=== PATIENT | male | born 1960 | race Two or more races ===

== ENCOUNTER 2021-06-28 22:00 | Emergency (ER) | payer SELFPAY ==
[~2021-06-28] VITALS: Ht 165.1 cm; Wt 65.3 kg
[2021-06-28 23:00] LABS: BASOPHILS % (AUTO) 1 % (0-1); EOSINOPHILS % (AUTO) 3 % (1-7); LYMPHOCYTES % (AUTO) 25 % (22-44); MEAN CORPUSCULAR HEMOGLOBIN 29.7 pg (27.5-34.5); MEAN CORPUSCULAR HGB CONC 34.2 g/dL (33.2-36.2); MEAN PLATELET VOLUME 7.4 fL (7.4-10.4); MONOCYTES % (AUTO) 10 % (2-9); NEUTROPHILS % (AUTO) 61 % (42-75); PLATELET COUNT 233 x10^3/uL (130-400); RED BLOOD COUNT 5.22 x10^6/uL (4.38-5.82); RED CELL DISTRIBUTION WIDTH 13.9 % (9.4-14.8)
[2021-06-28 23:10] LABS: CHLORIDE 105 mmol/L (98-107)
[2021-06-28 23:11] LABS: ALANINE AMINOTRANSFERASE 27 U/L (12-78); ALBUMIN 3.7 g/dL (3.4-5.0); ANION GAP 4 mmol/L (5-15); CALCIUM 9.3 mg/dL (8.5-10.1); CREATININE 0.89 mg/dL (0.7-1.3)
[2021-06-28 23:15] LABS: ALKALINE PHOSPHATASE 94 U/L (45-117); BILIRUBIN,TOTAL 0.5 mg/dL (0.2-1.0); TROPONIN I < 0.015 ng/mL (0.000-0.045)
--- NOTE | 2021-06-29 00:06 | NUR ---
UA COLLECTED AND SENT
[2021-06-29 00:12] LABS: MICROSCOPIC NOT IND
--- NOTE | 2021-06-29 02:05 | NUR ---
BEDSIDE REPORT RECEIVED FROM JESUS CARIAS
[2021-06-29 03:03] VITALS: BP 147/75
== END 2021-06-29 03:38 | disposition home or self-care (01) ==
LOC: ED 22:30
DX: R10.9 Unspecified abdominal pain (principal); M54.9 Dorsalgia, unspecified; E11.9 Type 2 diabetes mellitus without complications; I25.2 Old myocardial infarction
CPT/HCPCS: 36415; 71045; 74176; 80053; 81003; 83690; 84484; 85025; 93005; 99285